=== PATIENT | male | born 1965 | race Caucasian/White ===

== ENCOUNTER 2017-02-18 10:01 | Emergency (ER) | payer MEDICAID ==
[~2017-02-18] VITALS: Ht 182.9 cm; Wt 91.6 kg
[~2017-02-18 10:01] MED LIST: ACYCLOVIR800 MG PO; FLAGYL500 MG PO; LEVAQUIN500 MG PO; NOMEDS XX; NORCO 325 MG-51 TAB PO; PREDNISONE 20MG20 MG PO; TYLENOL WITH CO1 TA1 PO
--- NOTE | 2017-02-18 10:20 | Urgent Treatment Center Report ---
History of Present Issue Date/Time Seen by Provider 02/18/17 1015 Visit Reason Pt arrived:Walked Presenting Problem:SORE THROAT SINCE YESTERDAY Location if Accident: Onset of symptoms date/time:/ or onset unknown for:MEDICAL HX UNKNOWN Have you (or family members/close friends) recently traveled outside the [place]? N If Yes, where/when: Have you had exposure to infectious disease within the past month? TB? Other? Specify: Patient state that he began having sore throat yesterday States that about 2 weeks ago he stopped smoking and began to use a Vape Cig. state that he has recently been exposed to strep throat also State that yesterday he began to have sore throat and it has continued to get worse over the last 24 hours. ALLERGIES Coded Allergies: No Known Allergies (02/18/17) Home Medications Reported Medications No Known Home Medications History Medical History General CAD? No Angina: No CT: No Hypertension? No Hyperlipidemia? Yes CHF? No DVT? No PE? No COPD? No Asthma? No Anemia? No GERD? No Gastric ulcers? No GI Bleed? No Hernia? No Thyroid Problems? No Hypothyroidism? No CVA? No Seizures? No Diabetes? No Insulin Dependent: No Insulin Pump: No Home FSBS? No Renal Insuffiency? No UTI? No Stones? No BPH? Yes GB Disease: No Nephritic Syndrome? No Asplenia? No Hepatitis? No Sickle Cell Disease? No Arthritis? No Migraines? No Cataracts? No Glaucoma? No MRSA? No HIV? No TB? No Anxiety? No Depression? No Cancer? No Immunization HX DT/Tetanus [id number] Flu NEVER Pneumonia 01/02/2013 Surgical Hx Previous Surgery?Y BUNIONECTOMY Family History Family HX Diabetes Yes CAD Yes Hypertension Yes Hyperlipidemia Yes Cancer Yes TB No Social History Smoking Hx Smoker: Current Every Day Smoker Tobacco: Yes Type Cigarettes Packs/day < 1 Pack Alcohol Alcohol: No Review of Systems All Other Systems Reviewed and Negative Constitutional denies chills, denies fever ENT throat pain, throat swelling. Respiratory denies cough, denies shortness of breath, denies wheezing Physical Exam Vital Signs Vital Signs Date Time Temp Pulse Resp B/P Pulse O2 O2 Flow FiO2 Ox Delivery Rate 02/18 1010 97.9 62 18 130/87 99 General Appearance normal appearance, WD/WN, no apparent distress Ear, Nose, Throat Throat bright red, irritated, tenderness in maxillary sinuses noted Respiratory Status Yes: trachea midline, chest symmetrical, non tender chest. No: respiratory distress. 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 No Results/Orders Laboratory Tests 02/18/17 1010: Group A Strep Screen NOT DETECTED Orders Procedure Date/time Status [facility] STREP SCREEN 02/18 1009 Complete Departure Departure Time of Disposition 1035 Disposition DC Home or Self Care(routine) Clinical Impression Primary Impression: Viral upper respiratory illness Condition STABLE Referrals Yanick ROBBINS,Mark Longoria (Family) Patient Instructions DI for Viral Upper Respiratory Infection -- Adult, Sore Throat Additional Instructions * Monitor Temp. Tylenol and/or Ibuprofen as needed. ER if fever is no less than 101 despite alternating Tylenol and Ibuprofen * Encourage fluids, water, Gatorade, powerade, pedialyte if /toddler/or child * Warm salt water gargles for throat irritation *Warm fluids *Sore throat lozenges *Sleep elevated *humidifier or vaporizer *Flonase 2 sprays each nostril daily but may take 2-3 days to notice improvement with it *Bromfed may cause drowsiness. Know how it effect you or your child. Before driving, caring for small children or sending your child to school Follow up IMMEDIATELY for new or worsening of symptoms OR no noticeable improvement over the next 48-72 hours. 911 immediately for any life threatening symptoms such as chest pain or difficulty breathing Discharge Counseling Counseled pt/family regarding diagnosis, test results, home care, follow up needs Prescriptions Current Visit Scripts No Known Home Medications at 1039
--- NOTE | 2017-02-18 10:20 | Urgent Treatment Center Report ---
History of Present Issue Date/Time Seen by Provider 02/18/17 1015 Visit Reason Pt arrived:Walked Presenting Problem:SORE THROAT SINCE YESTERDAY Location if Accident: Onset of symptoms date/time:/ or onset unknown for:MEDICAL HX UNKNOWN Have you (or family members/close friends) recently traveled outside the [place]? N If Yes, where/when: Have you had exposure to infectious disease within the past month? TB? Other? Specify: Patient state that he began having sore throat yesterday States that about 2 weeks ago he stopped smoking and began to use a Vape Cig. state that he has recently been exposed to strep throat also State that yesterday he began to have sore throat and it has continued to get worse over the last 24 hours. ALLERGIES Coded Allergies: No Known Allergies (02/18/17) Home Medications Reported Medications No Known Home Medications History Medical History General CAD? No Angina: No [place]: No Hypertension? No Hyperlipidemia? Yes CHF? No DVT? No PE? No COPD? No Asthma? No Anemia? No GERD? No Gastric ulcers? No GI Bleed? No Hernia? No Thyroid Problems? No Hypothyroidism? No CVA? No Seizures? No Diabetes? No Insulin Dependent: No Insulin Pump: No Home FSBS? No Renal Insuffiency? No UTI? No Stones? No BPH? Yes GB Disease: No Nephritic Syndrome? No Asplenia? No Hepatitis? No Sickle Cell Disease? No Arthritis? No Migraines? No Cataracts? No Glaucoma? No MRSA? No HIV? No TB? No Anxiety? No Depression? No Cancer? No Immunization HX DT/Tetanus [id number] Flu NEVER Pneumonia 01/02/2013 Surgical Hx Previous Surgery?Y BUNIONECTOMY Family History Family HX Diabetes Yes CAD Yes Hypertension Yes Hyperlipidemia Yes Cancer Yes TB No Social History Smoking Hx Smoker: Current Every Day Smoker Tobacco: Yes Type Cigarettes Packs/day < 1 Pack Alcohol Alcohol: No Review of Systems All Other Systems Reviewed and Negative Constitutional denies chills, denies fever ENT throat pain, throat swelling. Respiratory denies cough, denies shortness of breath, denies wheezing Physical Exam Vital Signs Vital Signs Date Time Temp Pulse Resp B/P Pulse O2 O2 Flow FiO2 Ox Delivery Rate 02/18 1010 97.9 62 18 130/87 99 General Appearance normal appearance, WD/WN, no apparent distress Ear, Nose, Throat Throat bright red, irritated, tenderness in maxillary sinuses noted Respiratory Status Yes: trachea midline, chest symmetrical, non tender chest. No: respiratory distress. 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 No Results/Orders Laboratory Tests 02/18/17 1010: Group A Strep Screen NOT DETECTED Orders Procedure Date/time Status [facility] STREP SCREEN 02/18 1009 Complete Departure Departure Time of Disposition 1035 Disposition DC Home or Self Care(routine) Clinical Impression Primary Impression: Viral upper respiratory illness Condition STABLE Referrals Yanick ROBBINS,Mark Longoria (Family) Patient Instructions DI for Viral Upper Respiratory Infection -- Adult, Sore Throat Additional Instructions * Monitor Temp. Tylenol and/or Ibuprofen as needed. ER if fever is no less than 101 despite alternating Tylenol and Ibuprofen * Encourage fluids, water, Gatorade, powerade, pedialyte if /toddler/or child * Warm salt water gargles for throat irritation *Warm fluids *Sore throat lozenges *Sleep elevated *humidifier or vaporizer *Flonase 2 sprays each nostril daily but may take 2-3 days to notice improvement with it *Bromfed may cause drowsiness. Know how it effect you or your child. Before driving, caring for small children or sending your child to school Follow up IMMEDIATELY for new or worsening of symptoms OR no noticeable improvement over the next 48-72 hours. 911 immediately for any life threatening symptoms such as chest pain or difficulty breathing Discharge Counseling Counseled pt/family regarding diagnosis, test results, home care, follow up needs Prescriptions Current Visit Scripts No Known Home Medications at 1039
[2017-02-18 10:42] VITALS: BP 130/87
== END 2017-02-18 10:43 | disposition home or self-care (01) ==
LOC: UTC 10:01
DX: J06.9 Acute upper respiratory infection, unspecified (principal); Z72.0 Tobacco use; E78.5 Hyperlipidemia, unspecified